=== PATIENT | male | born 1940 | race Caucasian/White ===

== ENCOUNTER 2022-05-04 15:47 | Emergency (ER) | payer OTHER ==
[~2022-05-04] VITALS: Ht 177.8 cm; Wt 86.2 kg
--- NOTE | 2022-05-04 16:05 | NUR ---
[facility] OFFICERS HERE TO PICK HIM UP, SAYING THAT A FACILITY FILED A MISSING REPORT ON HIM, DR HILLIARD INFORMED.
--- NOTE | 2022-05-04 16:28 | NUR ---
PT DISCHARGED WITH [id number] TO BE TAKEN BACK TO HIS CARE FACILITY. VSS. AMBULATING WITH STEADY GAIT.
[2022-05-04 16:30] VITALS: BP 145/89
== END 2022-05-04 16:31 ==
LOC: ER 15:49
DX: F03.90 Unspecified dementia, unspecified severity, without behavioral disturbance, psychotic disturbance, mood disturbance, and anxiety (principal); E11.9 Type 2 diabetes mellitus without complications; Z60.2 Problems related to living alone